=== PATIENT | male | born 2000 | race African-American/Black ===

== ENCOUNTER 2022-01-30 02:38 | Emergency (ER) | payer SELFPAY ==
[2022-01-30] MEDS ORDERED: Bacitracin 1 PK ONE (03:04)
[2022-01-30] MEDS ORDERED: Boostrix 0.5 ML (Tdap) VIAL ONE (03:31)
== END 2022-01-30 03:43 | disposition home or self-care (01) ==
LOC: CSHERS 02:38
DX: S62.336A Displaced fracture of neck of fifth metacarpal bone, right hand, initial encounter for closed fracture (principal); S60.812A Abrasion of left wrist, initial encounter; S60.512A Abrasion of left hand, initial encounter; W25.XXXA Contact with sharp glass, initial encounter; Z23 Encounter for immunization
CPT/HCPCS: 90471; 90715

== ENCOUNTER 2022-05-23 10:41 | Emergency (ER) | payer SELFPAY | END 2022-05-23 12:21 | disposition home or self-care (01) | LOC: CSHERS 10:41 | DX: L02.414 Cutaneous abscess of left upper limb (principal); F17.200 Nicotine dependence, unspecified, uncomplicated | CPT/HCPCS: 99283 ==